=== PATIENT | female | born 1965 | race Hispanic/Latino ===

== ENCOUNTER → 2019-06-18 | Day surgery (SDC) | payer BC ==
[2019-06-17 11:54] LABS: BASOPHILS % 0.7 % (0.0-1.0); EOSINOPHILS # (AUTO) 0.2 (0.0-0.4); EOSINOPHILS % 3.4 % (0.0-6.0); HEMATOCRIT 37.9 % (34.2-44.1); HEMOGLOBIN 12.6 g/dL (12.0-16.0); LYMPHOCYTES # (AUTO) 2.4 (1.0-3.2); LYMPHOCYTES % 40.9 % (18.0-39.1); MEAN CORPUSCULAR HEMOGLOBIN 27.9 pg (28-32); MEAN CORPUSCULAR HGB CONC 33.2 g/dL (31-35); MEAN CORPUSCULAR VOLUME 83.8 fL (81-99); MONOCYTES # (AUTO) 0.4 (0.2-0.8); MONOCYTES % 7.4 % (4.4-11.3); NEUTROPHILS # (AUTO) 2.8 (2.1-6.9); NEUTROPHILS % 47.4 % (38.7-80.0); PLATELET COUNT 227 x10e3/uL (140-360); RED BLOOD COUNT 4.52 x10e6/uL (3.6-5.1); RED CELL DISTRIBUTION WIDTH 12.9 % (11.7-14.4)
[2019-06-17 12:11] LABS: ANION GAP 11.9 mmol/L (8-16); BLOOD UREA NITROGEN 19 mg/dL (7-26); BUN/CREATININE RATIO 26 (6-25); CALCIUM 9.4 mg/dL (8.4-10.2); CARBON DIOXIDE 28 mmol/L (22-29); CHLORIDE 104 mmol/L (98-107); CREATININE, SERUM 0.74 mg/dL (0.57-1.11); EST GLOMERULAR FILTRATION RATE > 60 ML/MIN (60-); GLUCOSE 133 mg/dL (74-118); POTASSIUM 3.9 mmol/L (3.5-5.1); SODIUM 140 mmol/L (136-145)
--- NOTE | 2019-06-17 13:05 | Diagnostic Imaging Report ---
EXAMINATION: CHEST 2 VIEWS INDICATION: Pre-operative COMPARISON: None FINDINGS: LINES/TUBES:None LUNGS:The lungs are mildly hyperinflated. No focal pneumonia or pulmonary edema. PLEURA:No pleural effusion or pneumothorax. MEDIASTINUM:The cardiomediastinal silhouette appears normal in size and shape. BONES/SOFT TISSUES:No acute osseous injury. ABDOMEN:No free air under the diaphragm. IMPRESSION: No focal pneumonia or pulmonary edema. Signed by: Veronica Cartwright MD on 06/17/2019 1:02 PM
[~2019-06-18] MED LIST: ACETAMINOPHEN 1000 MG/100 ML IV ONE; AMLODIPINE BESYL5 MG PO; BETAMETHASONE DISODIUM PHOS 6 MG/ML VIAL ONE; BUPIVACAINE HCL 0.5% INJ 30 ML VIAL INJ ONE; CEFAZOLIN SOD 1 GM/NS 50ML 100 ML IV ONE; DEXAMETHASONE SOD PHOS INJ 4 MG/ML VIAL ONE; EPHEDRINE SULFATE INJ 50 MG/10 ML SYR ONE; FENTANYL CITRATE/PF 100MCG/2 ML INJ ONE; LIDOCAINE HCL 1% LOCAL INJ 20 ML VIAL ONE; LIDOCAINE HCL 2% LOCAL INJ 5 ML SDV VIAL INJ ONE; LOSARTAN PO; LOSARTAN POTAS100 MG PO; MEPERIDINE HCL INJ 25 MG/ML VIAL ONE; MIDAZOLAM HCL 2 MG/2 ML VIAL ONE; MUPIROCIN 2% OINT 22 GM TUBE ONE; OMEPRAZOLE40 MG PO; ONDANSETRON HCL INJ 2MG/ML 2ML 2 MG/ML VIAL ONE; PRAVASTATIN SOD20 MG PO; PROPOFOL IV EMULSION 10 MG/ML 20 ML VIAL ONE; SEVOFLURANE INHAL SOLN 250 ML PEN BTL ONE; vit d PO
--- OUTSIDE RECORDS SUMMARY | 2019-06-18 05:09 | XMS REPORT ---
Author Author [facility] Address Unknown Phone Unavailable Care Team Providers Care Miller Apprentice Name Role Phone ALESSIO DEL CASTILLO Unavailable Unavailable Problems This patient has no known problems. Allergies, Adverse Reactions, Alerts This patient has no known allergies or adverse reactions. Medications This patient has no known medications. Results Test Description Test Time Test Comments Text Results Atomic Results Result Comments CHEST 2 VIEWS 2019-06-17 13:01:00 [place] [address] Patient Name: RAY VEGA MR #: [id number] : 1965 Age/Sex: 53/F Req #: [id number] [facility] Physician: Ordered by: ALESSIO DEL CASTILLO DPM Report #: [id number] Location: OR Room/Bed: Procedure: [id number] DX/CHEST 2 VIEWS Exam Date: 06/17/19 Exam Time: 1155 REPORT STATUS: Signed EXAMINATION: CHEST 2 VIEWS INDICATION: Pre-operative COMPARISON: None FINDINGS: LINES/TUBES:None LUNGS:The lungs are mildly hyperinflated. No focal pneumonia or pulmonary edema. PLEURA:No pleural effusion or pneumothorax. MEDIASTINUM:The cardiomediastinal silhouette appears normal in size and shape. BONES/SOFT TISSUES:No acute osseous injury. ABDOMEN:No free air under the diaphragm. IMPRESSION: No focal pneumonia or pulmonary edema. Signed by: Carrie Morrison MD on 06/17/2019 1:02 PM Dictated By: CARRIE MORRISON MD [id number] Transcribed By: KIM MOSES on 06/17/19 130 COPY TO: ALESSIO DEL CASTILLO DPM
--- NOTE | 2019-06-18 09:05 | Diagnostic Imaging Report ---
EXAMINATION: FOOT LEFT AP LAT INDICATION: Postoperative COMPARISON: None FINDINGS: AP and lateral images of the left foot demonstrate postoperative findings of first metatarsal osteotomy with threaded screw and pin fixation and K wire fixation of the second ray traversing the interphalangeal joints and MTP joint. Alignment is near-anatomic. No unexpected fracture. Surgical drain in place. Overlying splint material obscures fine bony detail. IMPRESSION: Postoperative findings of the left foot as above. Signed by: Veronica Cartwright MD on 06/18/2019 9:01 AM
[2019-06-18 09:33] VITALS: BP 134/81
--- NOTE | 2019-06-18 14:57 | Operative Report ---
DATE OF PROCEDURE: 06/18/2019 SURGEON: Trevon Costa DPM PREOPERATIVE DIAGNOSES: 1. Painful hallux valgus deformity, left foot. 2. Painful contracted hammertoes 2nd digits, left foot. 3. Painful contracted hammertoes 5th digits, left foot. 4. Painful plantar calcaneal heel spur with plantar fasciitis type symptoms, left foot. 5. Tarsal tunnel syndrome, left foot. POSTOPERATIVE DIAGNOSES: Confirmed. OPERATIVE PROCEDURE: 1. Telly bunionectomy with screw fixation left foot. 2. Arthroplasty 2nd with K-wire fixation of 2nd. 3. Arthroplasty of 5th digit. 4. Resection of plantar calcaneal heel spur. 5. Neurolysis tibial nerve, left foot. 6. Neurolysis medial plantar nerve,left foot. 7. Neurolysis lateral plantar nerve, left foot. 8. Intraoperative use of fluoroscopy. 9. Trigger point shot of cortisone. 10. Application of posterior splint. ANESTHESIA: General. HEMOSTASIS: Pneumatic thigh tourniquet at 350 mmHg. PROCEDURE IN DETAIL: The patient was taken into the operating, placed on the operative table in supine position. Following induction of general anesthesia by the anesthesiologist, Webril wraps were placed on the patient's left thigh followed by application of left thigh tourniquet. The left lower extremity was then prepped and draped in the usual aseptic manner. Following procedures then performed. Procedure #1: Telly bunionectomy with screw fixation of left foot. Attention was directed to the dorsal medial aspect of the 1st MPJ where a 6 cm linear incision was performed. Incision was deepened via sharp and blunt dissection being careful to retract vital structures and ligate superficial vessels as necessary. Once the level of capsule was reached, a longitudinal capsulotomy was then performed exposing the dorsomedial exostosis of the 1st metatarsal head. Using an oscillating saw, dorsomedial exostosis was excised from the operation site in toto. A V-osteotomy was then performed from medial to lateral. Capital fragment was then transpositioned laterally upon adequate surgical and anatomical reduction utilizing proper AO technique, a 2.0 12-mm cortical screw in conjunction with a buried 0.045 K-wire was used to achieve stability of osteotomy site. All redundant bone medially was excised via the use of oscillating saw and rotating bur. Procedures #2 through #3: Arthroplasty 2nd through 5th with K-wire fixation of 2nd. Attention was then directed to the above-mentioned toes, where a 3 cm linear incision was performed. Incision was deepened down to the joint capsule. Transverse capsulotomy was then performed exposing the head of the proximal phalanx. Via the use of an oscillating saw, head of the proximal phalanx, these were excised from the operation site in toto. Second toe was still noted to be contracted so a 0.045 K-wire was introduced across the metatarsophalangeal joint, after properly copiously flushing the area with saline to allow for proper anatomical reduction. Procedure #4. A resection of plantar calcaneal heel spur, right foot. Attention was then directed to the medial aspect of the right heel, where a 4 to 5 cm linear incision was performed. Incision was deepened down to the plantar fascia level. The medial one-half of the plantar fascia was resected from its insertion site, exposing the plantar calcaneal heel spur. Via the use of an osteotome and a mallet, plantar calcaneal spur was excised from the operation site in toto. All rough and bony edges were rasped smooth via the use of a reciprocating rasp. Procedure #5, #6 and #7: Neurolysis tibial nerve, neurolysis medial plantar nerve and neurolysis of lateral plantar nerve. Attention was then directed to the medial aspect of the right talotibial joint where a curvilinear incision was performed posterior to the medial malleolus. The incision was then carried through the subcutaneous tissue. Utilizing meticulous dissection, the flexor retinaculum was then clearly visualized and cut utilizing Metzenbaum scissors. At this point, the neurolysis of tibial nerve was performed. All soft tissue attachments surrounding the tibial nerve were bluntly dissected free. The incision was then carried down to the cathryn pedis and neurolysis of the medial and lateral plantar. Procedure #7 and #8: Neurolysis medial plantar nerve was then performed down to the bifurcation of the nerve. All adhesions were meticulously dissected utilizing a blunt hemostats to remove all adhesions from the above-mentioned nerves. All areas were then copiously flushed with sterile antibiotic solution and suction. Procedure #8: Intraoperative use of fluoroscopy was then used to make sure proper alignment fixation was achieved and proper resection of plantar calcaneal spur. Closure was then obtained utilizing 3-0 Vicryl, 4-0 Vicryl and 4-0 Nylon for capsule, subcutaneous tissue and skin respectively. Procedure #9: Trigger point shot of cortisone was then given to the 1st and 4th interspace of left foot. Also, the left heel, then approximately 15 to 20 mL of 0.5% plain Marcaine plus 10 mL of 1% Xylocaine plain were then used to achieve local anesthesia of above-mentioned surgical area. Sterile dressing was applied. Upon release of the thigh tourniquet, blood hyperemia was noted to all digits of the patient's left foot. Procedure #10: Application of posterior splint, a properly placed posterior splint was then applied keeping the foot at 90 degrees with respect to the leg to try for any type of postop complications. The patient was then transferred from the OR to recovery with vital signs stable and neurovascular status intact. No intraoperative complications were encountered. Blood loss from the surgery was minimal. The patient to remain nonweightbearing with the aid of crutches, keep her foot elevated, and is to apply an ice pack to the ankle joint area. JOSEPHINE Venegas/RAFAELA /[id number]
== END | disposition home or self-care (01) ==
LOC: OR 05:07
PROVIDERS: ATTEND Podiatrist Foot Surgery
DX: M20.12 Hallux valgus (acquired), left foot (principal); M20.42 Other hammer toe(s) (acquired), left foot; M77.32 Calcaneal spur, left foot; G57.52 Tarsal tunnel syndrome, left lower limb; G58.8 Other specified mononeuropathies; I10 Essential (primary) hypertension; E78.5 Hyperlipidemia, unspecified; K21.9 Gastro-esophageal reflux disease without esophagitis; Z01.810 Encounter for preprocedural cardiovascular examination; Z01.812 Encounter for preprocedural laboratory examination; Z01.818 Encounter for other preprocedural examination
CPT/HCPCS: 28035; 28119; 28285 ×2; 28296; 36415; 64704 ×2; 71046; 73620; 80048; 85025; 93005; C1713 ×2; J0131; J0690; J0720; J1100; J2001 ×2; J2175; J2250; J2405; J2704; J3010